=== PATIENT | female | born 1995 | race Two or more races ===

== ENCOUNTER 2024-04-06 13:24 | Emergency (ER) | payer OTHER ==
[~2024-04-06] VITALS: Ht 165.1 cm; Wt 61.2 kg
[2024-04-06 14:15] LABS: HEMATOCRIT 38.6 % (36.0-45.00); HEMOGLOBIN 13.2 g/dL (12.0-15.00); MEAN CELL VOLUME 90.3 fL (80.00-100.00); MEAN CORPUSCULAR HEMOGLOBIN 30.9 pg (27.00-32.0); MEAN CORPUSCULAR HGB CONC 34.2 g/dl (32.0-36.0); PLATELET COUNT 274 K/uL (150-450); RED BLOOD COUNT 4.28 M/uL (4.00-6.00); RED CELL DISTRIBUTION WIDTH 13.7 % (11.5-14.5)
[2024-04-06 14:16] LABS: URINE APPEARANCE Clear; URINE BILIRRUBIN Negative (NEGATIVE); URINE BLOOD Negative; URINE COLOR Yellow; URINE GLUCOSE Negative (NEGATIVE); URINE LEUKOCYTE Moderate; URINE NITRATE Negative; URINE PROTEIN Negative (NEGATIVE); URINE UROBILINOGEN 0.2 E.U./dl
[2024-04-06 14:19] LABS: URINE BACTERIA 542.9 uL (0.0-1933); URINE RBC 7.4 uL (0.0-20.8); URINE WBC 303.7 uL (0.0-23.2)
[2024-04-06 14:38] LABS: CALCIUM 8.9 mg/dL (8.5-10.1); CREATININE SERUM 0.82 mg/dL (0.55-1.02); GFR 82.42; POTASSIUM 3.59 mEq/L (3.5-5.1)
== END 2024-04-06 16:24 | disposition home or self-care (01) ==
LOC: ER 13:25
PROVIDERS: General Practice
DX: N39.0 Urinary tract infection, site not specified (principal)